=== PATIENT | female | born 1950 | race Caucasian/White ===

== ENCOUNTER → 2022-05-02 | Day surgery (SDC) | payer MEDICARE ==
[~2022-05-02] MED LIST: CYMBALTA 20 MG20 MG PO
== END | disposition home or self-care (01) ==
LOC: OR 06:54
DX: R19.7 Diarrhea, unspecified (principal); K31.A11 Gastric intestinal metaplasia without dysplasia, involving the antrum; K29.61 Other gastritis with bleeding; K64.0 First degree hemorrhoids
CPT/HCPCS: J2704; J7040